=== PATIENT | female | born 1960 | race Caucasian/White ===

== ENCOUNTER 2016-12-20 12:48 | Emergency (ER) | payer BC ==
[~2016-12-20] VITALS: Ht 170.2 cm; Wt 63.6 kg
[~2016-12-20 12:48] MED LIST: CALCIUM CITRAT200 MG PO; DOXYCYCLINE 10100 MG PO; HERCEPTIN440 MG/VIA IV; LEVAQUIN 5500 MG/TA1 PO; NORCO 325 MG-51 TAB PO; SLOW-MAG 6464 MG/TAB PO; VITAMIN E 400 U4001 PO
[2016-12-20 12:49] VITALS: TEMP 97.8
[2016-12-20] MEDS ORDERED: ARIMIDEX1 MG PO (12:52)
[2016-12-20 13:37] LABS: BASO % 0.6 % (0.0-2.0); EOS # 0.1 (0.0-0.7); EOS % 1.1 % (0-4.0); GRAN # 2.9 (1.4-6.5); GRAN % 61.4 % (42.2-75.2); HEMATOCRIT 45.6 % (37.0-47.0); HEMOGLOBIN 15.5 g/dl (12.5-16.0); LYMPH # 1.4 (1.2-3.4); LYMPH % 29.2 % (20.0-51.0); MEAN CELL VOLUME 98 fl (80.0-100.0); MEAN CORPUSCULAR HEMOGLOBIN 33 pg (27.0-31.0); MEAN CORPUSCULAR HGB CONC 34 g/dl (33.0-37.0); MEAN PLATELET VOLUME 10.8 fl (7.4-10.4); MONO # 0.4 (0.1-0.6); MONO % 7.5 % (1.7-9.3); PLATELET COUNT 149 K/mm3 (130-400); RED BLOOD COUNT 4.64 M/mm3 (4.10-5.30); REDCELL DISTRIBUTION WIDTH-CV 12.8 % (11.5-14.5); WHITE BLOOD COUNT 4.7 K/mm3 (4.8-10.8)
[2016-12-20 14:04] LABS: ADJUSTED CALCIUM 9.5 mg/dL (8.4-10.2); ALANINE AMINOTRANSFERASE 39 U/L (9-52); ALBUMIN 4.7 gm/dL (3.5-5.0); ALKALINE PHOSPHATASE 88 U/L (50-136); ANION GAP 11 mmol/L (7-16); BLOOD UREA NITROGEN 11 mg/dL (7-17); CALCIUM 10.1 mg/dL (8.4-10.2); CARBON DIOXIDE 30 mmol/L (22-30); CHLORIDE 100 mmol/L (98-107); GLUCOSE 132 mg/dL (74-106); LIPASE 90 U/L (23-300); POTASSIUM 4.1 mmol/L (3.4-5.0); SODIUM 140 mmol/L (137-145); TOTAL PROTEIN 7.8 gm/dL (6.4-8.2)
[2016-12-20 14:15] LABS: TROPONIN-I < 0.012 ng/mL (0.000-0.034)
[2016-12-20 15:07] VITALS: BP 114/52; PULSE 81
[2016-12-20] MEDS ORDERED: ULTRAM 50MG TAB50 MG PO (15:21)
[2016-12-20] MEDS ORDERED: PRIL40 PO (15:21)
== END 2016-12-20 17:00 | disposition home or self-care (01) ==
LOC: COL.ER 12:48
PROVIDERS: Emergency Medicine
DX: R10.12 Left upper quadrant pain (principal); R10.13 Epigastric pain; R74.8 Abnormal levels of other serum enzymes
CPT/HCPCS: C9113

== ENCOUNTER → 2018-01-23 | Outpatient (CLI) | payer BC ==
[~2018-01-23] MED LIST changes: +ARIMIDEX1 MG PO; +PRIL40 PO; +ULTRAM 50MG TAB50 MG PO
== END ==
LOC: MC.RAD 12:42
DX: C50.412 Malignant neoplasm of upper-outer quadrant of left female breast (principal); R22.32 Localized swelling, mass and lump, left upper limb; Z90.12 Acquired absence of left breast and nipple

== ENCOUNTER → 2021-03-01 | Outpatient (CLI) | payer BC ==
[~2021-03-01] VITALS: Ht 170.2 cm; Wt 72.7 kg
[2021-03-01] VITALS (9 sets, daily range): BP systolic 144–175; BP diastolic 93–101; PULSE 104–121
[~2021-03-01] MED LIST changes: +CALCIUM 600MG+D1 TAB PO; +PHENERGAN 25 TA25 MG PO; +PROMETHAZINE12.5 M5 PO; +VITAMIN D31000 I1 PO
--- NOTE | 2021-03-01 12:54 | NUR ---
pt to ct per wheelchair. Pt positioned in prone position and pillows used to tilt pt to left side down slightly. Monitors applied to pt. O2 on at 2l/nc.
--- NOTE | 2021-03-01 13:12 | NUR ---
Specimens obtained and placed in formalin by Dr Jones. Specimen labeled.
== END ==
LOC: COL.RAD 10:57
DX: C50.412 Malignant neoplasm of upper-outer quadrant of left female breast (principal); C79.51 Secondary malignant neoplasm of bone
CPT/HCPCS: Q9967

== ENCOUNTER 2021-03-03 08:29 | Day surgery (SDC) | payer BC ==
[~2021-03-03] VITALS: Ht 170.2 cm; Wt 73.9 kg
[~2021-03-03 08:29] MED LIST changes: -PHENERGAN 25 TA25 MG PO
[2021-03-03] MEDS ORDERED: PHENERGAN 25 TA25 MG PO (09:03)
[2021-03-03] MEDS ORDERED: NORCO 325 MG-51 TAB PO (09:03)
[2021-03-03 09:05] VITALS: BP 130/48; PULSE 106; TEMP 99.5
--- NOTE | 2021-03-03 10:01 | NUR ---
Patient puts on her call light. She requests to use the restroom. Staff assists her to the restroom via wheelchair. She voids and returns to her room via wheelchair.
[2021-03-03 12:03] VITALS: BP 105/51; PULSE 97; TEMP 97.7
--- NOTE | 2021-03-03 12:03 | NUR ---
Patient arrives to [facility] [place] [facility] via cart, accompanied by DENTAL DIRECTOR Raya and TIFFANY Wright. She is sedated on arrival. Monitoring is applied -VSS on 6L per face mask. NEUROLOGY EPILEPSY PHYSICIAN stays with the patient at the bedside until she is awake, conversing with staff. She states she has some discomfort in her back, and NEUROLOGY EPILEPSY PHYSICIAN gives her IV medication for the pain. Her is at the bedside. Will continue to monitor.
[2021-03-03 12:15] VITALS: BP 135/53; PULSE 105
--- NOTE | 2021-03-03 12:15 | NUR ---
Oxygen is turned off and patient tolerates this well. She is escorted to the restroom via wheelchair, voids, and returns to room. PIV is saline locked. VSS on room air. She is offered and receives water and applesauce.
[2021-03-03 12:30] VITALS: BP 143/56; PULSE 97
--- NOTE | 2021-03-03 12:54 | NUR ---
Patient has met discharge criteria. She states she would like to go home. PIV is removed with catheter intact and hemostasis achieved. Discharge instructions are discussed and she denies any questions and verbalizes understanding. Her dressings remain clean/dry/intact. She is changing to her clothing with her 's assistance.
--- NOTE | 2021-03-03 13:14 | NUR ---
Patient is escorted to the exit via wheelchair by staff. She is discharged to home to the care of her , who drives her home in a private vehicle at 1314.
--- NOTE | 2021-03-03 14:50 | NUR ---
Dr. Garcia called the nursing station regarding CXR results. These results are called to Dr. Sherwood at this time, who thanks the nursing staff for the information and has no further orders.
== END 2021-03-03 13:14 | disposition home or self-care (01) ==
LOC: SDCO 08:29
DX: C78.7 Secondary malignant neoplasm of liver and intrahepatic bile duct (principal); C79.51 Secondary malignant neoplasm of bone; C50.912 Malignant neoplasm of unspecified site of left female breast; C50.911 Malignant neoplasm of unspecified site of right female breast; G62.9 Polyneuropathy, unspecified; K12.31 Oral mucositis (ulcerative) due to antineoplastic therapy; F41.9 Anxiety disorder, unspecified; Z88.2 Allergy status to sulfonamides; Z88.8 Allergy status to other drugs, medicaments and biological substances; Z20.822 Contact with and (suspected) exposure to COVID-19; Z79.899 Other long term (current) drug therapy; Z79.52 Long term (current) use of systemic steroids; G43.909 Migraine, unspecified, not intractable, without status migrainosus; Z90.710 Acquired absence of both cervix and uterus; Z88.1 Allergy status to other antibiotic agents; Z87.891 Personal history of nicotine dependence
CPT/HCPCS: C1788; J0690; J1170; J1644; J2405; J2704; J3010; J7120

== ENCOUNTER → 2021-03-17 | Outpatient (CLI) | payer BC ==
[~2021-03-17] MED LIST changes: +PHENERGAN 25 TA25 MG PO
== END ==
LOC: COL.VAS 13:48
DX: C50.412 Malignant neoplasm of upper-outer quadrant of left female breast (principal)

== ENCOUNTER → 2021-06-14 | Outpatient (CLI) | payer BC | LOC: COL.VAS 13:14 | DX: C50.412 Malignant neoplasm of upper-outer quadrant of left female breast (principal); Z92.21 Personal history of antineoplastic chemotherapy ==

== ENCOUNTER 2021-08-04 09:30 | Outpatient (RCR) | payer BC | END 2021-09-11 13:52 | disposition home or self-care (01) | LOC: MKS.ESL.PT 09:30 | DX: M80.88XA Other osteoporosis with current pathological fracture, vertebra(e), initial encounter for fracture (principal); R53.1 Weakness ==

== ENCOUNTER → 2021-08-04 | Outpatient (CLI) | payer BC | LOC: COL.VAS 12:13 | DX: C50.919 Malignant neoplasm of unspecified site of unspecified female breast (principal) ==

== ENCOUNTER → 2021-12-05 | Outpatient (CLI) | payer BC | LOC: COL.VAS 14:02 | DX: C50.412 Malignant neoplasm of upper-outer quadrant of left female breast (principal); Z92.21 Personal history of antineoplastic chemotherapy ==

== ENCOUNTER → 2022-03-14 | Outpatient (CLI) | payer BC | LOC: COL.VAS 03-13 13:30 | DX: C50.112 Malignant neoplasm of central portion of left female breast (principal) ==

== ENCOUNTER 2023-02-26 19:39 | Observation (INO) | payer BC ==
[~2023-02-26] VITALS: Ht 162.6 cm; Wt 61.4 kg
[2023-02-26 20:19] LABS: BASO # 0.1 K/mm3 (0.0-0.2); EOS # 0.1 K/mm3 (0.0-0.7); EOS % 1.5 % (0.0-4.0); GRAN # 3.9 K/mm3 (1.4-6.5); GRAN % 67.6 % (42.2-75.2); HEMATOCRIT 37.7 % (37.0-47.0); HEMOGLOBIN 12.4 g/dl (12.5-16.0); LYMPH # 1.1 K/mm3 (1.2-3.4); LYMPH % 19.3 % (20.0-51.0); MEAN CELL VOLUME 91 fl (80.0-100.0); MEAN CORPUSCULAR HEMOGLOBIN 30 pg (27-31); MEAN CORPUSCULAR HGB CONC 33 g/dl (33.0-37.0); MEAN PLATELET VOLUME 9.8 fl (7.4-10.4); MONO # 0.6 K/mm3 (0.1-0.6); MONO % 10.1 % (1.7-9.3); PLATELET COUNT 157 K/mm3 (130-400); RED BLOOD COUNT 4.16 M/mm3 (4.10-5.30); REDCELL DISTRIBUTION WIDTH-CV 26.8 % (11.5-14.5)
[2023-02-26 20:30] LABS: ALBUMIN 3.7 gm/dL (3.4-4.8); BILIRUBIN,TOTAL 2.8 mg/dL (0.2-1.2); C-REACTIVE PROTEIN 0.37 mg/dL (0.00-0.50); CALCIUM 8.7 mg/dL (8.4-10.2); CREATININE, serum 0.6 mg/dL (0.57-1.11); TOTAL PROTEIN 6.2 gm/dL (6.2-8.1)
[2023-02-26 21:47] LABS: COLLECTION METHOD CLEAN CATCH
[2023-02-26 21:51] LABS: URINE COLOR Yellow (YELLOW)
[2023-02-26 21:52] LABS: PH 6.5 (5.0-8.5); URINE APPEARANCE Cloudy (CLEAR/HAZY)
[2023-02-26 21:53] LABS: MUCOUS Present (NOT PRESENT); SQUAMOUS EPITHELIAL None Seen /hpf (0-10); URINE BACTERIA None Seen /hpf (NONE SEEN); URINE BLOOD Negative (NEGATIVE); URINE GLUCOSE TRACE (NEGATIVE); URINE KETONE 1+ (NEGATIVE); URINE NITRATE Negative (NEGATIVE); URINE PROTEIN(semi-quant) Negative (NEGATIVE); URINE RBC 0-2 /hpf (0-2)
[2023-02-27 00:18] VITALS: BP 137/62; PULSE 78; TEMP 98.5
[2023-02-27 04:06] VITALS: BP 129/59; PULSE 81; TEMP 98.5
[2023-02-27 06:56] LABS: BASO % 0.5 % (0.0-2.0); GRAN # 2.9 K/mm3 (1.4-6.5); GRAN % 78.7 % (42.2-75.2); HEMOGLOBIN 11.2 g/dl (12.5-16.0); LYMPH # 0.6 K/mm3 (1.2-3.4); LYMPH % 16.1 % (20.0-51.0); MEAN CELL VOLUME 90 fl (80.0-100.0); MEAN CORPUSCULAR HEMOGLOBIN 30 pg (27-31); MEAN CORPUSCULAR HGB CONC 33 g/dl (33.0-37.0); MEAN PLATELET VOLUME 10.8 fl (7.4-10.4); MONO # 0.2 K/mm3 (0.1-0.6); MONO % 4.4 % (1.7-9.3); PLATELET COUNT 156 K/mm3 (130-400); RED BLOOD COUNT 3.75 M/mm3 (4.10-5.30); REDCELL DISTRIBUTION WIDTH-CV 26.5 % (11.5-14.5)
[2023-02-27 07:01] LABS: HEMATOCRIT 33.8 % (37.0-47.0)
[2023-02-27 07:10] LABS: CALCIUM 8.2 mg/dL (8.4-10.2); CREATININE, serum 0.6 mg/dL (0.57-1.11); POTASSIUM 4.1 mmol/L (3.5-4.5)
--- NOTE | 2023-02-27 07:29 | NUR ---
PER RADIOLOGY PATIENT DOES NOT NEED TO NPO FOR LP, NO MRI ORDERS TO FOLLOW.
--- NOTE | 2023-02-27 08:05 | NUR ---
LP CONSENT SIGNED AND ON CHART. PATIENT AWAKE AND ALERT RESTING IN BED. PATIENT DENIES ANY NEEDS OR COMPLAINTS AT THIS TIME. CALL LIGHT WITHIN REACH.
[2023-02-27 08:59] VITALS: BP 112/55; PULSE 90; TEMP 98.4
--- NOTE | 2023-02-27 11:47 | NUR ---
Food Production Machine Operator met with patient to discuss discharge planning. Patient lives in [place] with her , Alcon (ph#[phone]) who is at bedside. Patient advised her primary care physician is Dr. Alcala. Patient obtains [facility] from [facility] with no difficulties. Patient does not use any DME and is independent with ADLS. Patient reported that her , Alcon is her DPOA-HC. Patient plans to return home at time of discharge. Discharge Plan: Home
--- NOTE | 2023-02-27 13:30 | NUR ---
PATIENT IS BACK FROM LP AND FLAT AT THIS TIME. POST OP VITALS ONGOING. PATIENT IS STABLE AND DENIES ANY NEEDS OR COMPLAINTS AT THIS TIME. CALL LIGHT IS IN REACH. PATIENTS AT BEDSIDE.
[2023-02-27 13:55] LABS: CSF APPEARANCE CLEAR; CSF COLOR PINK; CSF MONONUCLEAR 93 % (70-100); CSF POLYMORPHONUCLEAR 7 % (0-6)
[2023-02-27 13:56] LABS: CSF RBC 2000 /mm3 (0-0)
[2023-02-27 14:07] LABS: GLUCOSE,CSF 74 mg/dL (40-70); TOTAL PROTEIN,CSF 97 mg/dL (15-45)
--- NOTE | 2023-02-27 14:55 | NUR ---
Initial visit; Racheal person was pleased when in Bill Cutter's prayer she prayed in thanksgiving for God's continual presence and healing as Jaleesa had been praying for God's presence to stay with her. Bill Cutter will keep Jaleesa in her prayers and will continue to follow-up with her.
[2023-02-27 16:00] VITALS: BP 126/61; PULSE 88
[2023-02-27 20:28] VITALS: BP 127/65; PULSE 79; TEMP 99.1
[2023-02-27 23:53] VITALS: BP 132/67; PULSE 74; TEMP 98.2
[2023-02-28 04:15] VITALS: BP 133/56; PULSE 75; TEMP 98.5
[2023-02-28 06:59] LABS: BASO % 0.3 % (0.0-2.0); GRAN # 5.5 K/mm3 (1.4-6.5); GRAN % 82.8 % (42.2-75.2); HEMATOCRIT 33.6 % (37.0-47.0); HEMOGLOBIN 11.1 g/dl (12.5-16.0); LYMPH # 0.7 K/mm3 (1.2-3.4); LYMPH % 10.2 % (20.0-51.0); MEAN CELL VOLUME 90 fl (80.0-100.0); MEAN CORPUSCULAR HEMOGLOBIN 30 pg (27-31); MEAN CORPUSCULAR HGB CONC 33 g/dl (33.0-37.0); MEAN PLATELET VOLUME 10.7 fl (7.4-10.4); MONO # 0.4 K/mm3 (0.1-0.6); MONO % 6.2 % (1.7-9.3); PLATELET COUNT 146 K/mm3 (130-400); RED BLOOD COUNT 3.72 M/mm3 (4.10-5.30)
[2023-02-28 07:26] LABS: CALCIUM 8.8 mg/dL (8.4-10.2); CREATININE, serum 0.56 mg/dL (0.57-1.11); POTASSIUM 3.7 mmol/L (3.5-4.5)
[2023-02-28 08:04] VITALS: BP 121/56; PULSE 93; TEMP 98.1
[2023-02-28] MEDS ORDERED: XELODA500 MG (08:26)
--- NOTE | 2023-02-28 08:29 | NUR ---
Patient is alert and oriented x4, tachycardic. States she has pain in her back due to the LP yesterday. She couldnt sleep.
[2023-02-28] MEDS ORDERED: PEPCID 20MG TAB20 MG PO (09:09)
[2023-02-28] MEDS ORDERED: DECADRON 4MG TAB4 MG PO (09:10)
--- NOTE | 2023-02-28 10:08 | NUR ---
Patient was provided with discharge information, all questions answered. IV discontinued. Pt waiting for ther to picke her up.
== END 2023-02-28 10:40 | disposition home or self-care (01) ==
LOC: COL.ER 19:39 → MEDICAL 21:46
PROVIDERS: Nurse Practitioner; Student in an Organized Health Care Education/Training Program; ADMIT Hospitalist
DX: R53.1 Weakness (principal); R53.0 Neoplastic (malignant) related fatigue; C79.31 Secondary malignant neoplasm of brain; Z85.3 Personal history of malignant neoplasm of breast; Z85.830 Personal history of malignant neoplasm of bone; Z85.05 Personal history of malignant neoplasm of liver; Z90.13 Acquired absence of bilateral breasts and nipples
CPT/HCPCS: G0378; J1650; J7030; J8540

== ENCOUNTER → 2023-09-23 | Outpatient (CLI) | payer MEDICARE, OTHER ==
[~2023-09-23] MED LIST changes: +DECADRON 4MG TAB4 MG PO; +MAGNESIUM200 MG PO; +PEPCID 20MG TAB20 MG PO; +XELODA500 MG
== END ==
LOC: COL.VAS 08:02
DX: C50.412 Malignant neoplasm of upper-outer quadrant of left female breast (principal)

== ENCOUNTER → 2023-12-23 | Outpatient (CLI) | payer MEDICARE | LOC: COL.VAS 08:45 | DX: C50.412 Malignant neoplasm of upper-outer quadrant of left female breast (principal) ==